=== PATIENT | male | born 1985 | race African-American/Black ===

== ENCOUNTER 2017-12-24 00:04 | Observation (INO) | payer OTHER ==
--- NOTE | 2017-12-24 02:01 | PDOC ---
Attending Attestation - Resident Resident Name: Ulysses Oliveira - ED Attending Attestation I have performed the following: I have examined & evaluated the patient, The case was reviewed & discussed with the resident, I agree w/resident's findings & plan, Exceptions are as noted - HPI HPI: 32 yo M s/p recent TURP presents with multiple symptoms. Initially c/o L anterior leg numbness, but later also stated he was having chest pain. Denies back pain, trauma. - Physicial Exam PE: GENERAL: Awake, alert, and fully oriented, in no acute distress HEAD: No signs of trauma EYES: PERRLA, EOMI, sclera anicteric, conjunctiva clear ENT: Auricles normal inspection, hearing grossly normal, nares patent, oropharynx clear without exudates. Moist mucosa NECK: Normal ROM, supple, no lymphadenopathy, JVD, or masses LUNGS: Breath sounds equal, clear to auscultation bilaterally. No wheezes, and no crackles HEART: Regular rate and rhythm, normal S1 and S2, no murmurs, rubs or gallops ABDOMEN: Soft, nontender, normoactive bowel sounds. No guarding, no rebound. No masses EXTREMITIES: Normal range of motion, no edema. No clubbing or cyanosis. No cords, erythema, or tenderness NEUROLOGICAL: Cranial nerves II through XII grossly intact. Normal speech. Motor 5/5 throughout. +Dec sensation to pinprick to L anterior thigh, sparing the lateral, medial, and posterior thigh. Sensation otherwise intact. SKIN: Warm, Dry, normal turgor, no rashes or lesions noted. : Catheter in place +leg bag. - Medical Decision Making Pt with multiple complaints. No signs of cord compression, and the neurologic complaint appears to be in the territory of the atnerior femoral cutaneous nerve. It does not correspond to the spinal dermatomes, so a spinal lesion is considered unlikely at this time. CT lumbar obtained. However, patient later c/ o chest pain, and in light of his recent procedure, had to consider PE. CTA pending. UA is positive, likely due to recent procedure when the cameron was placed. Will give abx. If CTA and CT neg, will DC home with neuro and urology f/ u.
--- NOTE | 2017-12-24 02:07 | PDOC ---
History of Present Illness - General Stated Complaint: NUMBNESS, LT LEG Time Seen by Provider: 12/24/17 01:44 - History of Present Illness Initial Comments: 12/24/17 02:05 32 yo M with h/o A-fib, seizure disorder, bladder incontinence, BPH s/p TURP, who p/w left anterior thigh numbness. Patient reports multiple complaints beginning this AM at rest including palpitations intermittently, Finley, chest tightness, and left thigh numbness, with no identifiable triggers or alleviators. Patient in normal state of health yesterday. + Minimal hematuria following procedure. Patient denies N/V, F/C, cough, wheezing, PND, orthopnea, hemtoptysis, leg swelling, urinary complaints, abdominal pain, diarrhea, constipation, BPR, lightheadedness, weakness. Surgical: TURP ( [facility] at [facility] 12/19/17). Cameron catheter in place. Denies h/o ACS/RI, or PE. PMHx: as noted above ROS: as noted SHx: Former smoker. Denies Etoh, IVDA. Past History - Past Medical History Allergies/Adverse Reactions: Allergies Allergy/AdvReac Type Severity Reaction Status Date / Time No Known Allergies Allergy Verified 12/24/17 02:40 Home Medications: Ambulatory Orders Lisinopril [Prinivil] 10 mg PO DAILY 12/24/17 Rivaroxaban [Xarelto -] 20 mg PO DAILY 12/24/17 Sulfamethoxazole/Trimethoprim [Bactrim Ds -] 1 tab PO BID #6 tablet 12/24/17 Tamsulosin HCl [Flomax] 0.4 mg PO DAILY 12/24/17 - Suicide/Smoking/Psychosocial Hx Smoking History: Former smoker Have you smoked in the past 12 months: No Hx Alcohol Use: No Drug/Substance Use Hx: No Review of Systems - Review of Systems Comments:: 12/24/17 02:07 GENERAL/CONSTITUTIONAL: No fever or chills. No weakness. HEAD, EYES, EARS, NOSE AND THROAT: No change in vision. No ear pain or discharge. No sore throat. CARDIOVASCULAR: +chest pain and shortness of breath RESPIRATORY: No cough, wheezing, or hemoptysis. GASTROINTESTINAL: No nausea, vomiting, diarrhea or constipation. GENITOURINARY: No dysuria, frequency, or change in urination. MUSCULOSKELETAL: + Left leg numbness, and weakness. No neck or back pain. SKIN: No rash NEUROLOGIC: No headache, vertigo, loss of consciousness, or change in strength/ sensation. ENDOCRINE: No increased thirst. No abnormal weight change HEMATOLOGIC/LYMPHATIC: No anemia, easy bleeding, or history of blood clots. ALLERGIC/IMMUNOLOGIC: No hives or skin allergy. *Physical Exam - Physical Exam Comments: 12/24/17 02:07 GENERAL: Awake, alert, and fully oriented, in no acute distress HEAD: No signs of trauma, normocephalic, atraumatic EYES: PERRLA, EOMI, sclera anicteric, conjunctiva clear ENT: Hearing grossly normal, nares patent, oropharynx clear without exudates. Moist mucosa NECK: Normal ROM, supple, no lymphadenopathy, JVD, or masses LUNGS: No distress, speaks full sentences, clear to auscultation bilaterally HEART: Regular rate and rhythm, normal S1 and S2, no murmurs, rubs or gallops, peripheral pulses normal and equal bilaterally. ABDOMEN: Soft, nontender, normoactive bowel sounds. No guarding, no rebound. No masses : + cameron catheter insertion. Insertion site c/d/i. EXTREMITIES :LLE: Diminished sensation to pinprick at anterior-medial left thigh. RLE-Normal inspection, Normal range of motion, no edema. No clubbing or cyanosis. Palpable and symmetric pulses BL. NEUROLOGICAL: Cranial nerves II through XII grossly intact. Normal speech, normal gait, no focal sensorimotor deficits SKIN: Warm, Dry, normal turgor, no rashes or lesions noted ED Treatment Course - LABORATORY CBC & Chemistry Diagram: 12/24/17 04:12 12/24/17 04:12 Medical Decision Making - Medical Decision Making 12/24/17 03:12 32 yo M with h/o A-fib, seizure disorder, bladder incontinence, BPH s/p TURP, who p/w left anterior thigh numbness, palpitations, Finley, chest tightness. VSS, AF. ACs/RI r/o. R/o PNA. R/o LLE DVT. Will assess for hyperglycemia, thyroid dysfunction, cardiac dysarrythmia, electrolyte abnml, toxic or metabolic derangements, acid-base disturbances, infection. R/o PE. Ed Course: CBC, CMP, Pt/INR, Cardiac Pr. UA, Urine Cx. EKG, CXR, CT L SPINE NS 1 L EKG: Sinus Tachycardia 104, with RAD. Slight Q waves II, III, AvF. Absent MAYDA, STD. Similiar to prior EKG (10/08/17) 12/24/17 04:51 UA: 3+ Blood, 3+ LE, 302 WBC, 1032 RBC, Nitrite + Bactrim PO No prior culture or sensitivities. 12/24/17 04:51 CBC: Unremarkable 12/24/17 04:52 Sent Bactrim to pharmacy. 12/24/17 05:40 CMP: Unremarkable Trop: Neg 12/24/17 07:35 Patient signed out to day team. Stable and pending Chest CTA. *DC/Admit/Observation/Transfer Diagnosis at time of Disposition: Left thigh pain - Discharge Dispostion Condition at time of disposition: Stable Decision to Admit order: No - Prescriptions Prescriptions: Sulfamethoxazole/Trimethoprim [Bactrim Ds -] 1 tab PO BID #6 tablet - Referrals Referrals: Mae Mcdonald MD [Primary Care Provider] - - Patient Instructions Printed Discharge Instructions: DI for Numbness/tingling Additional Instructions: Please return to the emergency department with any new or worsening symptoms or concerns. Please follow up with your primary care physician within 72 hours. - Post Discharge Activity - Attestations Physician Attestion: 12/24/17 02:08 I attest to the information provided in this note.
[2017-12-24 02:35] VITALS: BMI 21.2
[2017-12-24 04:18] LABS: BASO % 0.5 % (0-2.0); EOS % 3.5 % (0-4.5); HEMATOCRIT 35.9 % (35.4-49); HEMOGLOBIN 12.1 GM/dL (11.7-16.9); LYMPH % 29.1 % (8-40); MCH 28.8 pg (25.7-33.7); MCHC 33.8 g/dl (32.0-35.9); MEAN CELL VOLUME 85.4 fl (80-96); MEAN PLT VOLUME 8.1 fl (7.5-11.1); MONO % 12.7 % (3.8-10.2); NEUT % 54.2 % (42.8-82.8); PLATELET COUNT 225 K/MM3 (134-434)
[2017-12-24 04:20] LABS: URINE APPEARANCE CLOUDY; URINE BILIRUBIN NEGATIVE (<2.0 mg/dL); URINE COLOR YELLOW; URINE GLUCOSE (UA) NEGATIVE (NEGATIVE); URINE KETONE NEGATIVE (NEGATIVE); URINE LEUK ESTERASE 3+ (NEGATIVE); URINE NITRITE POSITIVE (NEGATIVE); URINE PROTEIN 2+ (NEGATIVE)
[2017-12-24 04:31] LABS: CALCIUM OXALATE CRYSTALS RARE /hpf (NONE SEEN); EPI CELLS RARE /HPF (FEW); URINE BACTERIA MODERATE /hpf (NONE SEEN); URINE MUCUS RARE; YEAST FEW
[2017-12-24] MEDS ORDERED: SULFAMETHOXAZOLE/TRIMETHOPRIM 800MG/160MG D.S. TABLET PO ONE (04:55)
[2017-12-24 05:20] LABS: INR 0.98 (0.83-1.09); PROTHROMBIN TIME (PATIENT) 11.6 SEC (9.7-13.0)
[2017-12-24 05:31] LABS: ALBUMIN 3.6 g/dl (3.4-5.0); ALK PHOS 70 U/L (45-117); ANION GAP 6 MMOL/L (8-16); BILIRUBIN,TOTAL 0.2 mg/dL (0.2-1); BLOOD UREA NITROGEN 10 mg/dL (7-18); CALCIUM 9.1 mg/dL (8.5-10.1); CHLORIDE 106 mmol/L (98-107); CO2 29 mmol/L (21-32); GLUCOSE,RANDOM 98 mg/dL (74-106); SGOT/AST 26 U/L (15-37); SGPT/ALT 33 U/L (13-61); SODIUM 140 mmol/L (136-145); TOT PROT 7.3 g/dl (6.4-8.2)
[2017-12-24] MEDS ORDERED: SODIUM CHLORIDE 1,000 ML IV STA (05:42)
[2017-12-24] MEDS ORDERED: SULFAMETHOXAZOLE/TRIMETHOPRIM 800MG/160MG D.S. TABLET ONE (06:07)
--- NOTE | 2017-12-24 09:19 | PDOC ---
*Physical Exam - Vital Signs Last Vital Signs Temp Pulse Resp BP Pulse Ox 97.9 F 90 18 109/72 100 12/24/17 02:13 12/24/17 02:13 12/24/17 02:13 12/24/17 02:13 12/24/17 02:13 - Physical Exam Comments: 12/24/17 09:18 GENERAL: Awake, alert, and fully oriented, in no acute distress HEAD: No signs of trauma, normocephalic, atraumatic EYES: PERRLA, EOMI, sclera anicteric, conjunctiva clear ENT: Auricles normal inspection, hearing grossly normal, nares patent, oropharynx clear without exudates. Moist mucosa NECK: Normal ROM, supple, no lymphadenopathy, JVD, or masses LUNGS: No distress, speaks full sentences, clear to auscultation bilaterally HEART: Regular rate and rhythm, normal S1 and S2, no murmurs, rubs or gallops, peripheral pulses normal and equal bilaterally. SKIN: Warm, Dry, normal turgor, no rashes or lesions noted. ED Treatment Course - LABORATORY CBC & Chemistry Diagram: 12/24/17 04:12 12/24/17 04:12 - ADDITIONAL ORDERS Additional order review: Laboratory Results 12/24/17 12/24/17 12/24/17 04:12 04:12 04:06 PT with INR 11.60 INR 0.98 Sodium 140 Potassium 4.0 Chloride 106 Carbon Dioxide 29 Anion Gap 6 L BUN 10 Creatinine 1.0 Creat Clearance w eGFR > 60 Random Glucose 98 Calcium 9.1 Total Bilirubin 0.2 AST 26 ALT 33 Alkaline Phosphatase 70 Creatine Kinase Troponin I Total Protein 7.3 Albumin 3.6 TSH 0.57 D Urine Color Urine Appearance Urine pH Ur Specific [place] Urine Protein Urine Glucose (UA) Urine Ketones Urine Blood Urine Nitrite Urine Bilirubin Urine Urobilinogen Ur Leukocyte Esterase Urine WBC (Auto) Urine RBC (Auto) Ur Epithelial Cells Calcium Oxalate Crystal Urine Bacteria Urine Mucus Urine Yeast 12/24/17 12/24/17 04:06 04:06 PT with INR INR Sodium Potassium Chloride Carbon Dioxide Anion Gap BUN Creatinine Creat Clearance w eGFR Random Glucose Calcium Total Bilirubin AST ALT Alkaline Phosphatase Creatine Kinase 142 Troponin I < 0.02 Total Protein Albumin TSH Urine Color Yellow Urine Appearance Cloudy Urine pH 5.0 Ur Specific [place] 1.028 Urine Protein 2+ H Urine Glucose (UA) Negative Urine Ketones Negative Urine Blood 3+ H Urine Nitrite Positive Urine Bilirubin Negative Urine Urobilinogen 2.0 Ur Leukocyte Esterase 3+ H Urine WBC (Auto) 302 Urine RBC (Auto) 1032 Ur Epithelial Cells Rare Calcium Oxalate Crystal Rare Urine Bacteria Moderate Urine Mucus Rare Urine Yeast Few 12/24/17 04:12 RBC 4.20 MCV 85.4 MCHC 33.8 RDW 15.0 D MPV 8.1 Neutrophils % 54.2 Lymphocytes % 29.1 Monocytes % 12.7 H Eosinophils % 3.5 D Basophils % 0.5 - Medications Given in the ED: ED Medications Discontinued Medications Generic Name Dose Route Start Last Admin Trade Name Freq PRN Reason Stop Dose Admin Sodium Chloride 1,000 mls @ 1,000 mls/hr 12/24/17 05:42 12/24/17 06:19 Normal Saline - IV 12/24/17 06:41 1,000 mls/hr ASDIR STA Administration Trimethoprim/Sulfamethoxazole 1 each 12/24/17 04:55 12/24/17 06:11 Bactrim Ds - PO 12/24/17 04:56 1 each ONCE ONE Administration Medical Decision Making - Medical Decision Making 12/24/17 09:[address] Oliveira. Patient is 32M with history of afib, BPH s/p TURP here today with new onset neuropathy, chest pain, and shortness of breath. Patient signed out to Dr Marrero ED obs pending CTA read. Patient reassessed as per physical exam, stable. *DC/Admit/Observation/Transfer Diagnosis at time of Disposition: Left thigh pain - Discharge Dispostion Condition at time of disposition: Stable Decision to Admit order Date/Time: Decision to Admit Order Category Date Time Status Decision to Admit to Hospital Routine Admission 12/24/17 09:09 Active - Prescriptions - Referrals - Patient Instructions - Post Discharge Activity
--- NOTE | 2017-12-24 09:39 | HP ---
CHIEF COMPLAINT: L leg numbness HISTORY OF PRESENT ILLNESS: 32 year old male with a history of Afib, recent TURP () (off xarelto since ) for BPH, bladder incontinence, presented to the hospital with L leg numbness for several weeks, chest tightness, dyspnea on exertion. He states that he cannot feel anything on the anterior aspect of his L thigh from the hip to the knee. Denies that it gets any better or any worse over time. Currently asymptomatic on exam. ER course was notable for: (1) EKG sinus tachycardia (2) (3) PAST MEDICAL HISTORY: Afib, CHF, BPH, bladder incontinence, PAST SURGICAL HISTORY: TURP Social History: Smoking: denies Alcohol: denies Drugs: denies Family History: unknown, reports family when he was very young and he does not know family history Allergies No Known Allergies Allergy (Verified 12/24/17 02:40) HOME MEDICATIONS: Home Medications Medication Instructions Recorded Lisinopril [Prinivil] 10 mg PO DAILY 12/24/17 Rivaroxaban [Xarelto -] 20 mg PO DAILY 12/24/17 Sulfamethoxazole/Trimethoprim 1 tab PO BID #6 tablet 12/24/17 [Bactrim Ds -] Tamsulosin HCl [Flomax] 0.4 mg PO DAILY 12/24/17 REVIEW OF SYSTEMS CONSTITUTIONAL: Absent: fever, chills, diaphoresis, generalized weakness, malaise, loss of appetite, weight change HEENT: Absent: rhinorrhea, nasal congestion, throat pain, throat swelling, difficulty swallowing, mouth swelling, ear pain, eye pain, visual changes CARDIOVASCULAR: Absent: chest pain, syncope, palpitations, irregular heart rate, lightheadedness , peripheral edema RESPIRATORY: Absent: cough, shortness of breath, dyspnea with exertion, orthopnea, wheezing, stridor, hemoptysis GASTROINTESTINAL: Absent: abdominal pain, abdominal distension, nausea, vomiting, diarrhea, constipation, melena, hematochezia GENITOURINARY: Absent: dysuria, frequency, urgency, hesitancy, hematuria, flank pain, genital pain MUSCULOSKELETAL: Absent: myalgia, arthralgia, joint swelling, back pain, neck pain SKIN: Absent: rash, itching, pallor HEMATOLOGIC/IMMUNOLOGIC: Absent: easy bleeding, easy bruising, lymphadenopathy, frequent infections ENDOCRINE: Absent: unexplained weight gain, unexplained weight loss, heat intolerance, cold intolerance NEUROLOGIC: Absent: headache, focal weakness or paresthesias, dizziness, unsteady gait, seizure, mental status changes, bladder or bowel incontinence PSYCHIATRIC: Absent: anxiety, depression, suicidal or homicidal ideation, hallucinations. PHYSICAL EXAMINATION Vital Signs - 24 hr 12/24/17 12/24/17 00:15 02:13 Temperature 98.1 F 97.9 F Pulse Rate 98 H 90 Respiratory 18 18 Rate Blood Pressure 127/93 109/72 O2 Sat by Pulse 97 100 Oximetry (%) GENERAL: Awake, alert, and fully oriented, in no acute distress. HEAD: Normal with no signs of trauma. EYES: Pupils equal, round and reactive to light, extraocular movements intact, sclera anicteric, conjunctiva clear. No lid lag. EARS, NOSE, THROAT: Ears normal, nares patent, oropharynx clear without exudates. Moist mucous membranes. NECK: Normal range of motion, supple without lymphadenopathy, JVD, or masses. LUNGS: Breath sounds equal, clear to auscultation bilaterally. No wheezes, and no crackles. No accessory muscle use. HEART: Regular rate and rhythm, normal S1 and S2 without murmur, rub or gallop. ABDOMEN: Soft, nontender, not distended, normoactive bowel sounds, no guarding, no rebound, no masses. No hepatomegaly or splenomegaly. MUSCULOSKELETAL: Normal range of motion at all joints. No bony deformities or tenderness. No CVA tenderness. UPPER EXTREMITIES: 2+ pulses, warm, well-perfused. No cyanosis. No clubbing. No peripheral edema. LOWER EXTREMITIES: 2+ pulses, warm, well-perfused. No calf tenderness. No peripheral edema. NEUROLOGICAL: Cranial nerves II-XII intact. Normal speech. Normal gait. PSYCHIATRIC: Cooperative. Good eye contact. Appropriate mood and affect. SKIN: Warm, dry, normal turgor, no rashes or lesions noted, normal capillary refill. Laboratory Results - last 24 hr 12/24/17 12/24/17 12/24/17 04:06 04:06 04:06 WBC RBC Hgb Hct MCV MCH MCHC RDW Plt Count MPV Absolute Neuts (auto) Neutrophils % Lymphocytes % Monocytes % Eosinophils % Basophils % Nucleated RBC % PT with INR INR Sodium Potassium Chloride Carbon Dioxide Anion Gap BUN Creatinine Creat Clearance w eGFR Random Glucose Calcium Total Bilirubin AST ALT Alkaline Phosphatase Creatine Kinase 142 Troponin I < 0.02 Total Protein Albumin TSH 0.57 D Urine Color Yellow Urine Appearance Cloudy Urine pH 5.0 Ur Specific [place] 1.028 Urine Protein 2+ H Urine Glucose (UA) Negative Urine Ketones Negative Urine Blood 3+ H Urine Nitrite Positive Urine Bilirubin Negative Urine Urobilinogen 2.0 Ur Leukocyte Esterase 3+ H Urine WBC (Auto) 302 Urine RBC (Auto) 1032 Ur Epithelial Cells Rare Calcium Oxalate Crystal Rare Urine Bacteria Moderate Urine Mucus Rare Urine Yeast Few 12/24/17 12/24/17 12/24/17 04:12 04:12 04:12 WBC 7.0 RBC 4.20 Hgb 12.1 Hct 35.9 MCV 85.4 MCH 28.8 MCHC 33.8 RDW 15.0 D Plt Count 225 MPV 8.1 Absolute Neuts (auto) 3.8 Neutrophils % 54.2 Lymphocytes % 29.1 Monocytes % 12.7 H Eosinophils % 3.5 D Basophils % 0.5 Nucleated RBC % 0 PT with INR 11.60 INR 0.98 Sodium 140 Potassium 4.0 Chloride 106 Carbon Dioxide 29 Anion Gap 6 L BUN 10 Creatinine 1.0 Creat Clearance w eGFR > 60 Random Glucose 98 Calcium 9.1 Total Bilirubin 0.2 AST 26 ALT 33 Alkaline Phosphatase 70 Creatine Kinase Troponin I Total Protein 7.3 Albumin 3.6 TSH Urine Color Urine Appearance Urine pH Ur Specific [place] Urine Protein Urine Glucose (UA) Urine Ketones Urine Blood Urine Nitrite Urine Bilirubin Urine Urobilinogen Ur Leukocyte Esterase Urine WBC (Auto) Urine RBC (Auto) Ur Epithelial Cells Calcium Oxalate Crystal Urine Bacteria Urine Mucus Urine Yeast ASSESSMENT/PLAN: 32 year old male with a history of Afib, recent TURP () (off xarelto since ) for BPH, bladder incontinence, presented to the hospital with L leg numbness for several weeks, chest tightness, dyspnea on exertion #Chest Tightness: resolved in ED -trops - x2 -CTA (-) for PE #Leg Numbness: -chronic -CT lumbar spine shows minimal disc bulg but no nerve compression -refer to neuro outpatient #Disposition -discharge home with followup to cardiology, PCP, and neurology Visit type - Emergency Visit Emergency Visit: Yes ED Registration Date: 12/24/17 Care time: The patient presented to the Emergency Department on the above date and was hospitalized for further evaluation of their emergent condition. - New Patient This patient is new to me today: Yes Date on this admission: 12/24/17 - Critical Care Critical Care patient: No
[2017-12-24 09:56] VITALS: TEMP 98
--- NOTE | 2017-12-24 10:42 | EKG ---
Test Reason : Blood Pressure : / mmHG Vent. Rate : 104 BPM Atrial Rate : 104 BPM P-R Int : 178 ms QRS Dur : 082 ms QT Int : 326 ms P-R-T Axes : 082 103 061 degrees QTc Int : 428 ms SINUS TACHYCARDIA RIGHTWARD AXIS POSSIBLE INFERIOR INFARCT , AGE UNDETERMINED ABNORMAL ECG Confirmed by Hu Cohen MD ([id number]) on 12/24/2017 10:41:51 AM Referred By: Confirmed By:Hu Cohen MD
--- NOTE | 2017-12-24 10:54 | PN ---
Teaching Attending Note Name of Resident: Reza Bowman ATTENDING PHYSICIAN STATEMENT I saw and evaluated the patient. I reviewed the resident's note and discussed the case with the resident. I agree with the resident's findings and plan as documented. SUBJECTIVE: OBJECTIVE: Vital Signs Period Temp Pulse Resp BP Sys/Estevez Pulse Ox Last 24 Hr 97.9 F-98.1 F 88-98 18-18 109-127/72-93 97-100 Laboratory Tests 12/24/17 12/24/17 12/24/17 04:06 04:06 04:06 WBC RBC Hgb Hct MCV MCH MCHC RDW Plt Count MPV Absolute Neuts (auto) Neutrophils % Lymphocytes % Monocytes % Eosinophils % Basophils % Nucleated RBC % PT with INR INR Sodium Potassium Chloride Carbon Dioxide Anion Gap BUN Creatinine Creat Clearance w eGFR Random Glucose Calcium Total Bilirubin AST ALT Alkaline Phosphatase Creatine Kinase 142 Troponin I < 0.02 Total Protein Albumin TSH 0.57 D Urine Color Yellow Urine Appearance Cloudy Urine pH 5.0 Ur Specific [place] 1.028 Urine Protein 2+ H Urine Glucose (UA) Negative Urine Ketones Negative Urine Blood 3+ H Urine Nitrite Positive Urine Bilirubin Negative Urine Urobilinogen 2.0 Ur Leukocyte Esterase 3+ H Urine WBC (Auto) 302 Urine RBC (Auto) 1032 Ur Epithelial Cells Rare Calcium Oxalate Crystal Rare Urine Bacteria Moderate Urine Mucus Rare Urine Yeast Few 12/24/17 12/24/17 12/24/17 04:12 04:12 04:12 WBC 7.0 RBC 4.20 Hgb 12.1 Hct 35.9 MCV 85.4 MCH 28.8 MCHC 33.8 RDW 15.0 D Plt Count 225 MPV 8.1 Absolute Neuts (auto) 3.8 Neutrophils % 54.2 Lymphocytes % 29.1 Monocytes % 12.7 H Eosinophils % 3.5 D Basophils % 0.5 Nucleated RBC % 0 PT with INR 11.60 INR 0.98 Sodium 140 Potassium 4.0 Chloride 106 Carbon Dioxide 29 Anion Gap 6 L BUN 10 Creatinine 1.0 Creat Clearance w eGFR > 60 Random Glucose 98 Calcium 9.1 Total Bilirubin 0.2 AST 26 ALT 33 Alkaline Phosphatase 70 Creatine Kinase Troponin I Total Protein 7.3 Albumin 3.6 TSH Urine Color Urine Appearance Urine pH Ur Specific [place] Urine Protein Urine Glucose (UA) Urine Ketones Urine Blood Urine Nitrite Urine Bilirubin Urine Urobilinogen Ur Leukocyte Esterase Urine WBC (Auto) Urine RBC (Auto) Ur Epithelial Cells Calcium Oxalate Crystal Urine Bacteria Urine Mucus Urine Yeast 12/24/17 09:10 WBC RBC Hgb Hct MCV MCH MCHC RDW Plt Count MPV Absolute Neuts (auto) Neutrophils % Lymphocytes % Monocytes % Eosinophils % Basophils % Nucleated RBC % PT with INR INR Sodium Potassium Chloride Carbon Dioxide Anion Gap BUN Creatinine Creat Clearance w eGFR Random Glucose Calcium Total Bilirubin AST ALT Alkaline Phosphatase Creatine Kinase 139 Troponin I < 0.02 Total Protein Albumin TSH Urine Color Urine Appearance Urine pH Ur Specific [place] Urine Protein Urine Glucose (UA) Urine Ketones Urine Blood Urine Nitrite Urine Bilirubin Urine Urobilinogen Ur Leukocyte Esterase Urine WBC (Auto) Urine RBC (Auto) Ur Epithelial Cells Calcium Oxalate Crystal Urine Bacteria Urine Mucus Urine Yeast Home Medications Medication Instructions Recorded Lisinopril [Prinivil] 10 mg PO DAILY 12/24/17 Rivaroxaban [Xarelto -] 20 mg PO DAILY 12/24/17 Sulfamethoxazole/Trimethoprim 1 tab PO BID #6 tablet 12/24/17 [Bactrim Ds -] Tamsulosin HCl [Flomax] 0.4 mg PO DAILY 12/24/17 ASSESSMENT AND PLAN:
[2017-12-24 11:41] VITALS: BP 128/77; PULSE 83
--- NOTE | 2017-12-24 15:01 | DS ---
Physical Exam: SUBJECTIVE: Patient seen and examined OBJECTIVE: Vital Signs Period Temp Pulse Resp BP Sys/Estevez Pulse Ox Last 24 Hr 97.9 F-98.1 F 83-98 18-18 109-128/72-93 97-100 PHYSICAL EXAM GENERAL: The patient is awake, alert, and fully oriented, in no acute distress. HEAD: Normal with no signs of trauma. EYES: PERRL, extraocular movements intact, sclera anicteric, conjunctiva clear. ENT: Ears normal, nares patent, oropharynx clear without exudates, moist mucous membranes. NECK: Trachea midline, full range of motion, supple. LUNGS: Breath sounds equal, clear to auscultation bilaterally, no wheezes, no crackles, no accessory muscle use. HEART: Regular rate and rhythm, S1, S2 without murmur, rub or gallop. ABDOMEN: Soft, nontender, nondistended, normoactive bowel sounds, no guarding, no rebound, no hepatosplenomegaly, no masses. EXTREMITIES: 2+ pulses, warm, well-perfused, no edema. NEUROLOGICAL: Cranial nerves II through XII grossly intact. Normal speech, gait not observed. PSYCH: Normal mood, normal affect. SKIN: Warm, dry, normal turgor, no rashes or lesions noted. LABS Laboratory Results - last 24 hr 12/24/17 12/24/17 12/24/17 04:06 04:06 04:06 WBC RBC Hgb Hct MCV MCH MCHC RDW Plt Count MPV Absolute Neuts (auto) Neutrophils % Lymphocytes % Monocytes % Eosinophils % Basophils % Nucleated RBC % PT with INR INR Sodium Potassium Chloride Carbon Dioxide Anion Gap BUN Creatinine Creat Clearance w eGFR Random Glucose Calcium Total Bilirubin AST ALT Alkaline Phosphatase Creatine Kinase 142 Troponin I < 0.02 Total Protein Albumin TSH 0.57 D Urine Color Yellow Urine Appearance Cloudy Urine pH 5.0 Ur Specific Colton 1.028 Urine Protein 2+ H Urine Glucose (UA) Negative Urine Ketones Negative Urine Blood 3+ H Urine Nitrite Positive Urine Bilirubin Negative Urine Urobilinogen 2.0 Ur Leukocyte Esterase 3+ H Urine WBC (Auto) 302 Urine RBC (Auto) 1032 Ur Epithelial Cells Rare Calcium Oxalate Crystal Rare Urine Bacteria Moderate Urine Mucus Rare Urine Yeast Few 12/24/17 12/24/17 12/24/17 04:12 04:12 04:12 WBC 7.0 RBC 4.20 Hgb 12.1 Hct 35.9 MCV 85.4 MCH 28.8 MCHC 33.8 RDW 15.0 D Plt Count 225 MPV 8.1 Absolute Neuts (auto) 3.8 Neutrophils % 54.2 Lymphocytes % 29.1 Monocytes % 12.7 H Eosinophils % 3.5 D Basophils % 0.5 Nucleated RBC % 0 PT with INR 11.60 INR 0.98 Sodium 140 Potassium 4.0 Chloride 106 Carbon Dioxide 29 Anion Gap 6 L BUN 10 Creatinine 1.0 Creat Clearance w eGFR > 60 Random Glucose 98 Calcium 9.1 Total Bilirubin 0.2 AST 26 ALT 33 Alkaline Phosphatase 70 Creatine Kinase Troponin I Total Protein 7.3 Albumin 3.6 TSH Urine Color Urine Appearance Urine pH Ur Specific Colton Urine Protein Urine Glucose (UA) Urine Ketones Urine Blood Urine Nitrite Urine Bilirubin Urine Urobilinogen Ur Leukocyte Esterase Urine WBC (Auto) Urine RBC (Auto) Ur Epithelial Cells Calcium Oxalate Crystal Urine Bacteria Urine Mucus Urine Yeast 12/24/17 09:10 WBC RBC Hgb Hct MCV MCH MCHC RDW Plt Count MPV Absolute Neuts (auto) Neutrophils % Lymphocytes % Monocytes % Eosinophils % Basophils % Nucleated RBC % PT with INR INR Sodium Potassium Chloride Carbon Dioxide Anion Gap BUN Creatinine Creat Clearance w eGFR Random Glucose Calcium Total Bilirubin AST ALT Alkaline Phosphatase Creatine Kinase 139 Troponin I < 0.02 Total Protein Albumin TSH Urine Color Urine Appearance Urine pH Ur Specific Col[place] Urine Protein Urine Glucose (UA) Urine Ketones Urine Blood Urine Nitrite Urine Bilirubin Urine Urobilinogen Ur Leukocyte Esterase Urine WBC (Auto) Urine RBC (Auto) Ur Epithelial Cells Calcium Oxalate Crystal Urine Bacteria Urine Mucus Urine Yeast HOSPITAL COURSE: Date of Admission:12/24/17 32 year old male with a history of Afib, recent TURP () (off xarelto since ) for BPH, bladder incontinence, presented to the hospital with L leg numbness for several weeks, chest tightness, dyspnea on exertion. He was worked up for PE with a negative CTA and negative troponins. Patient was discharged home with instructions to follow with his PCP, his petrology teacher, and a neurologist. Date of Discharge: 12/24/17 Minutes to complete discharge: 36 Discharge Summary Reason For Visit: CHEST PAIN Condition: Stable - Instructions Diet, Activity, Other Instructions: Please return to the emergency department with any new or worsening symptoms or concerns. Please follow up with your primary care physician within 72 hours. Please make an appointment with the neurologist, Dr. Jo, within 1 week of discharge. Referrals: Wilfredo Jo MD [Staff Physician] - 1 Week Mae Mcdonald MD [Primary Care Provider] - Disposition: HOME - Home Medications Comprehensive Discharge Medication List: Ambulatory Orders Lisinopril [Prinivil] 10 mg PO DAILY 12/24/17 Rivaroxaban [Xarelto -] 20 mg PO DAILY 12/24/17 Sulfamethoxazole/Trimethoprim [Bactrim Ds -] 1 tab PO BID #6 tablet 12/24/17 Tamsulosin HCl [Flomax] 0.4 mg PO DAILY 12/24/17 This patient is new to me today: Yes Date on this admission: 12/24/17 Emergency Visit: Yes ED Registration Date: 12/24/17 Care time: The patient presented to the Emergency Department on the above date and was hospitalized for further evaluation of their emergent condition. Critical Care patient: No - Discharge Referral Referred to [facility] Med P.C.: No
== END 2017-12-24 12:20 | disposition home or self-care (01) ==
LOC: JER 00:04 → JERBED 09:09
PROVIDERS: ADMIT Internal Medicine; ATTEND Internal Medicine
PROC: 3E0337Z Introduction of Electrolytic and Water Balance Substance into Peripheral Vein, Percutaneous Approach (ICD-10-PCS; principal; 2017-12-24)
DX: R07.89 Other chest pain (principal); I48.91 Unspecified atrial fibrillation; G40.909 Epilepsy, unspecified, not intractable, without status epilepticus; N40.0 Benign prostatic hyperplasia without lower urinary tract symptoms; Z87.891 Personal history of nicotine dependence
CPT/HCPCS: 36415; 71045-TC-FY; 71275-TC; 72131-TC; 80053; 81003; 81015; 82550; 84443; 84484; 85025; 85610; 87086; 87186; 93005; 93010; 96360; 99285-25; G0378; J7030

== ENCOUNTER 2018-09-17 08:23 | Emergency (ER) | payer OTHER ==
[2018-09-17 08:36] VITALS: TEMP 98.2; BMI 21.2
[2018-09-17 09:27] VITALS: BP 134/91; PULSE 86
--- NOTE | 2018-09-17 10:08 | PDOC ---
Documentation entered by Serena Dye SCRIBE, acting as scribe for Adebayo Brandt MD. Adebayo Brandt MD: This documentation has been prepared by the radhaibe, Serena Dye SCRIBE, under my direction and personally reviewed by me in its entirety. I confirm that the documentation accurately reflects all work, treatment, procedures, and medical decision making performed by me. History of Present Illness - General Chief Complaint: Chest Pain Stated Complaint: CHEST PAIN / VOMIT BLOOD Time Seen by Provider: 09/17/18 09:20 History Source: Patient Exam Limitations: No Limitations - History of Present Illness Initial Comments: 09/17/18 10:18 The patient is a 33-year-old male, with a past medical history of HTN, BPH, TIA - 2018, and seizures, who presents with chest pain that began this morning,sharp /pinching in character, lasting for 5 minutes before resolving on its own, nonpleuritic, intermittent, no alleviating/ exacerbating, with associated RT lower face numbness. Patient also reports experiencing 1 episode of nonbloody/ nonbilious emesis. Denies any shortness of breath, diaphoresis, fever, chills, cough, sputum. Denies any headache, vision changes. Allergies: povidone-iodine, soap, coconut, coconut oil, strawberry. Social History: None reported. Surgical History: None reported. PCP: Dr. Mae Mcdonald Product Safety Specialist: Dr. Patel Past History - Past Medical History Allergies/Adverse Reactions: Allergies Allergy/AdvReac Type Severity Reaction Status Date / Time povidone-iodine Allergy Rash Verified 09/17/18 08:33 [From Betadine] soap [From Betadine] Allergy Rash Verified 09/17/18 08:33 coconut AdvReac Swelling Verified 09/17/18 08:33 coconut oil AdvReac Swelling Verified 09/17/18 08:33 strawberry AdvReac Swelling Verified 09/17/18 08:33 Home Medications: Ambulatory Orders Lisinopril [Prinivil] 10 mg PO DAILY 12/24/17 Rivaroxaban [Xarelto -] 20 mg PO DAILY 12/24/17 Tamsulosin HCl [Flomax] 0.4 mg PO DAILY 12/24/17 CVA: No COPD: No DVT: No Diabetes: No Disorders: Yes (BPH) HTN: Yes Hypercholesterolemia: No Seizures: Yes - Immunization History Immunization Up to Date: Yes - Suicide/Smoking/Psychosocial Hx Smoking History: Current some day smoker Have you smoked in the past 12 months: Yes Number of Cigarettes Smoked Daily: 10 Information on smoking cessation initiated: No Hx Alcohol Use: No Drug/Substance Use Hx: No Substance Use Type: None Review of Systems - Review of Systems Able to Perform ROS?: Yes Comments:: 09/17/18 10:20 CONSTITUTIONAL: No fever, no chills, no fatigue EYES: No visual changes ENT: No ear pain, no sore throat CARDIOVASCULAR: (+)Chest pain. No palpitations RESPIRATORY: No cough, no SOB GI: No abdominal pain, no nausea, no vomiting, no constipation, no diarrhea GENITOURINARY: No dysuria, no frequency, no hematuria MUSKULOSKELETAL: No back pain, no joint pain, no myalgias SKIN: No rash NEURO: (+)RT lower face numbness. No headache *Physical Exam - Vital Signs Last Vital Signs Temp Pulse Resp BP Pulse Ox 98.2 F 86 20 134/91 100 09/17/18 08:34 09/17/18 08:44 09/17/18 08:44 09/17/18 08:44 09/17/18 08:44 - Physical Exam Comments: 09/17/18 10:22 CONSTITUTIONAL: Well-appearing; well-nourished; in no apparent distress HEAD: Normocephalic; atraumatic EYES: PERRL; EOM intact ENMT: External appears normal; normal oropharynx NECK: Supple; non-tender; no cervical lymphadenopathy CARD: Normal S1, S2; no murmurs, rubs, or gallops RESP: Normal chest excursion with respiration; breath sounds clear and equal bilaterally; no wheezes, rhonchi, or rales ABD: Soft, non-distended; non-tender; no palpable organomegaly, no palpable hernias EXT: Normal ROM in all four extremities; non-tender to palpation; distal pulses intact SKIN: Warm, dry, no rash NEURO: Mental status: The patient is alert and oriented x3. Cranial nerves: Cranial nerves II through XII are intact Motor: The upper extremities are 5 over 5 in all muscle groups. The lower extremities are 5 over 5 in all muscle groups. No pronator drift. Sensation: Sensation is intact to light touch throughout. Cerebellar: Tvwbyw-nhozie-ahak is normal in both upper extremities. Heel-knee- dykes is normal in both lower extremities. Reflexes: 2+ and symmetric in the upper and lower extremities. Gait: Normal. Heel and toe walking are normal. Tandem gait is normal. Medical Decision Making - Medical Decision Making 09/17/18 09:54 patient is 33-year-old male with history of a flutter on Xarelto, questionable congenital heart disease who presents to the ER with recurrent, intermittent, substernal sharp chest discomfort that lasted for approximately 5 minutes, similar in nature and severity to previous episodes of chest discomfort the patient had experienced over a period of years. Patient also endorses a brief, five-minute, self limiting episode of right lower facial numbness had resolved prior to arrival. In the ER, patient is awake and alert, with normal stable vital signs, EKG revealing no evidence of acute ischemia or cardiac dysrhythmia. Patient also endorses that the complaint of hematemesis is in error. I explained to the patient and that his chest pain and right facial numbness are concerning symptoms and he may require additional evaluation but at this time he refuses and wishes to sign out AMA. I advised the patient that he is at risk of heart attack, stroke, disability and even . He expressed understanding but still wishes to sign out AMA. Patient will follow-up with cardiology promptly and will return immediately if his symptoms recur. *DC/Admit/Observation/Transfer Diagnosis at time of Disposition: Right facial numbness Chest pain Qualifiers: Chest pain type: unspecified Qualified Code(s): R07.9 - Chest pain, unspecified - Discharge Dispostion Disposition: AGAINST MEDICAL ADVICE - Referrals Referrals: Mae Mcdonald MD [Primary Care Provider] - Carroll Patel MD [Staff Physician] - - Patient Instructions Printed Discharge Instructions: DI for Chest Pain, DI for Numbness/tingling Additional Instructions: you are leaving AGAINST MEDICAL ADVICE. You're at risk of heart attack, stroke, severe disability and even . 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 Return immediately for recurrent or worsening symptoms. - Post Discharge Activity - Attestations Physician Attestion: 09/17/18 09:54 The documentation was prepared by the scribe under my direct supervision. I have reviewed the documentation which correctly represents the findings, medical decision-making and critical action taken by me.
--- NOTE | 2018-09-19 12:01 | EKG ---
Test Reason : Blood Pressure : / mmHG Vent. Rate : 096 BPM Atrial Rate : 096 BPM P-R Int : 174 ms QRS Dur : 084 ms QT Int : 340 ms P-R-T Axes : 076 083 064 degrees QTc Int : 429 ms NORMAL SINUS RHYTHM POOR R WAVE PROGRESSION WHEN COMPARED WITH ECG OF 24-DEC-2017 04:25, NO SIGNIFICANT CHANGE WAS FOUND Confirmed by KATELYN CACERES MD ([id number]) on 09/19/2018 12:01:00 PM Referred By: Confirmed By:KATELYN CACERES MD
== END 2018-09-17 10:12 | disposition left against medical advice (07) ==
LOC: JER 08:23
DX: R07.9 Chest pain, unspecified (principal); R20.0 Anesthesia of skin; Z79.01 Long term (current) use of anticoagulants; I48.92 Unspecified atrial flutter
CPT/HCPCS: 93005; 93010; 99283-25